=== PATIENT | female | born 1970 | race Caucasian/White ===

== ENCOUNTER 2017-08-01 07:04 | Day surgery (SDC) | payer MEDICAID ==
[~2017-08-01] VITALS: Ht 172.7 cm; Wt 107.1 kg
[2017-08-01 07:49] VITALS: Ht 172.7 cm; Wt 107.1 kg
[2017-08-01] MEDS ORDERED: SYN1 PO (07:56)
[2017-08-01] MEDS ORDERED: [UNRECOGNIZED DRUG - OTHER] (07:56)
[2017-08-01 08:21] VITALS: BP 152/77; PULSE 59; RESP 14
[2017-08-01] MEDS ORDERED: PROPOFOL 40 ML ONE (08:32)
--- NOTE | 2017-08-01 09:22 | OPPN ---
Date/Time of Note Date/Time of Note DATE: 08/01/17 TIME: 09:21 Operative Report Preoperative Diagnosis Screening Postoperative Diagnosis Internal hemorrhoids No colon neoplasm was identified Operation/Procedure Performed Colonoscopy Surgeon see signature line delivery assistant None Anesthesia: MAC Estimated blood loss: none Transfusion Required none Specimen None Grafts/Implants none Complications none MOISÉS GOMEZ MD Aug 01, 2017 09:22
--- NOTE | 2017-08-02 07:13 | GILP ---
DATE OF PROCEDURE: NAME OF PROCEDURE: Colonoscopy. SURGEON: Moisés Anne MD PREOPERATIVE DIAGNOSIS: Screening colonoscopy. POSTOPERATIVE DIAGNOSES 1. Colonoscopy all the way to the cecum. 2. Internal hemorrhoids. 3. No colon neoplasm was identified. INDICATION FOR THE PROCEDURE: Ms. Mariana uA is a 47-year-old female patient who noticed a change in the bowel habits. She had family history of colon cancer. Patient was scheduled for scr eening colonoscopy. The procedure and possible complications are well explained to the patient, she understood and conse nted to the procedure. DESCRIPTION OF PROCEDURE: Under the influence of anesthesia, the colonoscope was carefully introduc ed in the rectum and under direct vision, it was advanced all the way to the cecum. FINDINGS: The patient had internal hemorrhoids. No colon neoplasm was identified. She tolerated the procedure very well and there was no complication from the procedure. At the end of the procedure, she was awake with stable vital signs and she was discharged home to the care of h er family. IMPRESSION: Please see postoperative diagnoses. PLAN: Next screening colonoscopy in 10 years. Dictated By: MOISÉS VIRGEN/ABIEL Conf#: [id number] DID#: [id number]
--- NOTE | 2017-08-03 07:48 | CONS ---
DATE OF ADMISSION: 08/01/2017 DATE OF CONSULTATION: PATIENT NAME: ALENA PEREZ PREOPERATIVE GASTROENTEROLOGY CONSULTATION I thank you very much for this kind referral. HISTORY OF PRESENT ILLNESS: Ms. Alena Perez is a 47-year-old female patient who has been refer red to me for further evaluation of change in the bowel habits. The patient never had screening col onoscopy. The patient has family history of colon cancer. Her appetite has been good, and she is n ot losing any weight. She does not have any upper abdominal pain, nausea or vomiting. Not on nonst eroidal anti-inflammatory agents. No history of gallstones or liver disease. Not hypertensive or d iabetic. No heart disease, lung problem or kidney disease. She has hypothyroidism. She is status post lumpectomy, chemotherapy and radiation for breast cancer. Nonsmoker, no alcohol abuse. The pa live's mother had colon cancer. ALLERGIES: NO DRUG ALLERGIES. MEDICATIONS: Levothyroxine. PHYSICAL EXAMINATION: GENERAL: She is 5 feet 8 inches tall and weighs 240 pounds. HEART: Normal heart sounds. LUNGS: Clear. ABDOMEN: Soft. No masses. Normal bowel sounds. NEUROLOGIC: Normal neurological exam. IMPRESSION: 1. Change in the bowel habit. 2. Family history of colon cancer. 3. The patient needs screening colonoscopy. 4. Hypothyroidism. 5. Status post lumpectomy, chemotherapy and radiation for breast cancer. PLAN: 1. Screening colonoscopy. 2. Because of the obesity with a short thick neck, she needs monitored anesthesia care. The procedure and possible complications were well explained to the patient. She understands and co nsents to the procedure. I thank you once again. With warmest personal regards. Dictated By: MOISÉS VIRGEN/ABIEL Conf#: [id number] DID#: [id number]
== END 2017-08-01 18:16 | disposition home or self-care (01) ==
LOC: GIL 07:04
PROVIDERS: ATTEND Internal Medicine Gastroenterology
DX: Z12.11 Encounter for screening for malignant neoplasm of colon (principal); K64.8 Other hemorrhoids; E03.9 Hypothyroidism, unspecified
CPT/HCPCS: 45378; Z7610